=== PATIENT | male | born 1965 | race Caucasian/White ===

== ENCOUNTER 2017-10-30 12:19 | Emergency (ER) | payer BC ==
[~2017-10-30] VITALS: Ht 177.8 cm; Wt 98.4 kg
[2017-10-30] MEDS ORDERED: ALLOPURINOL 10100 M3 PO (12:40)
[2017-10-30] MEDS ORDERED: LOPRESSOR50 PO (12:40)
[2017-10-30] MEDS ORDERED: ALLEGRA ALLERG180 MG PO (12:41)
[2017-10-30] MEDS ORDERED: SINGULAIR 10 MG10 M1 PO (12:41)
[2017-10-30 13:51] VITALS: BP 102/79
== END 2017-10-30 13:53 | disposition home or self-care (01) ==
LOC: M.ERS 12:19
DX: J11.1 Influenza due to unidentified influenza virus with other respiratory manifestations (principal); I10 Essential (primary) hypertension; M10.9 Gout, unspecified; Z88.6 Allergy status to analgesic agent